=== PATIENT | female | born 1975 | race Caucasian/White ===

== ENCOUNTER 2021-03-25 11:22 | Emergency (ER) | payer SELFPAY ==
[2021-03-25 12:14] VITALS: BP 115/78; PULSE 90; TEMP 98.3; BMI 27.4
[2021-03-25] MEDS ORDERED: ACETAMINOPHEN 500 MG TABLET (FP) PO ONE (12:27)
== END 2021-03-25 14:36 | disposition home or self-care (01) ==
LOC: JER 11:22
DX: B34.9 Viral infection, unspecified (principal)
CPT/HCPCS: 71045-TC-FY; 87804; 87807; 93005; 93010; 99285-25; C9803; U0003; U0005

== ENCOUNTER 2024-10-09 20:12 | Emergency (ER) | payer OTHER ==
[2024-10-09 20:26] VITALS: BP 137/91; PULSE 70; RESP 18; TEMP 98.3; BMI 30.2
== END 2024-10-09 23:25 | disposition home or self-care (01) ==
LOC: JERFT 20:12
DX: S52.612A Displaced fracture of left ulna styloid process, initial encounter for closed fracture (principal); S52.502A Unspecified fracture of the lower end of left radius, initial encounter for closed fracture; W19.XXXA Unspecified fall, initial encounter
CPT/HCPCS: 73110-TC-LT-FY; 73130-TC-LT-FY; 99283-25